=== PATIENT | male | born 1965 | race Caucasian/White ===

== ENCOUNTER → 2016-05-13 | Outpatient (CLI) | payer BC ==
[~2016-05-13] MED LIST: IOPAMIDOL (ISOVUE 370) 100 ML BTL IV ONE
--- NOTE | 2016-05-13 17:07 | CT ---
Unenhanced and Enhanced CT Scan of the Abdomen and Pelvis Clinical History: 51-year-old male nonsmoker with no cancer history, and an episode of gross hematuri a. ICD-10 Diagnostic Code: R31.0. Technique: Oral contrast was not administered. A multidetector unenhanced helical CT scan of the abdo men and pelvis was initially obtained. Subsequently, following the uncomplicated intravenous administ ration of 95 mL of Isovue-[id number], a multidetector helical CT scan was obtained through the abdomen follo wing a 2-minute delay, and then a 10-minute delayed set of images was acquired of the abdomen and pel vis with coronal and sagittal reconstructed images. A dose reduction protocol was used. Finding: UNENHANCED CT SCAN OF THE ABDOMEN AND PELVIS: There is a 3-mm calcified granuloma in the anterior le ft lower lobe on series 2, image 13. There is no pleural or pericardial effusion. There are no hepati c, pancreatic, splenic, adrenal, renal, ureteral, or urinary bladder calculi. There is mild constipat ion. The osseous structures are age-appropriate, with some degenerative traction osteophytes in the m id-to-lower lumbar spine. There is no lytic or blastic lesion. MULTIPHASIC CONTRAST-ENHANCED CT SCAN OF THE ABDOMEN: The liver, gallbladder, pancreas, spleen, adre nal glands, and the kidneys appear normal. There are small extrarenal pelves. There is no focal renal mass or hydronephrosis. There is no perinephric inflammation. There is no retroperitoneal or mesente reno adenopathy. There is a normal contour to the renal collecting systems or ureters, and the ureters follow a normal course to the urinary bladder. The abdominal aorta and IVC are normal in caliber. CONTRAST-ENHANCED CT SCAN OF THE PELVIS: The urinary bladder is moderately distended, and there is a urine/contrast level. The distal ureters are contrast-opacified and normal in caliber, with no intra luminal filling defect. The prostate gland and the seminal vesicles are normal. There is no adenopath y or free fluid. There is a normal appearance to the appendix, draped over the right psoas muscle. Th e osseous structures are age-appropriate. Impression: 1. There is no CT explanation for the patient's episode of gross hematuria. This should not preclude cystoscopy. 2. Small benign calcified granuloma in the anterior left lower lobe. 3. Mild constipation.
== END ==
LOC: CIMAGING 15:14
PROVIDERS: ATTEND Family Medicine
DX: R31.0 Gross hematuria (principal); K59.00 Constipation, unspecified; R91.8 Other nonspecific abnormal finding of lung field
CPT/HCPCS: 74178-PO; Q9967